=== PATIENT | male | born 1940 | race Hispanic/Latino ===

== ENCOUNTER 2018-05-01 02:34 | Inpatient (IN) | payer OTHER ==
[~2018-05-01] VITALS: Ht 185.4 cm; Wt 93.6 kg
[2018-05-01] VITALS (14 sets, daily range): BP systolic 87–130; BP diastolic 43–71
[2018-05-01 03:29] LABS: BASOPHILS % (AUTO) 1.5 % (0.0-5.0); EOSINOPHILS % (AUTO) 3.6 % (0.0-8.0); HEMATOCRIT 35.2 % (42-54); LYMPHOCYTES % (AUTO) 17.6 % (21.0-51.0); MEAN CORPUSCULAR HEMOGLOBIN 34.1 pg (27.0-33.0); MEAN CORPUSCULAR HGB CONC 33.9 g/dL (32.0-36.0); MEAN CORPUSCULAR VOLUME 100.7 fL (79-99); MONOCYTES % (AUTO) 13.6 % (3.0-13.0); NEUTROPHILS % (AUTO) 63.7 % (40.0-77.0); PLATELET COUNT (AUTO) 162 K/uL (130-400); RED BLOOD CELL COUNT(AUTO) 3.49 MIL/uL (4.50-6.20); RED CELL DISTRIBUTION WIDTH 18.1 % (11.0-15.5); WHITE BLOOD COUNT (AUTO) 7.5 K/uL (4.8-10.8)
[2018-05-01 03:34] LABS: CREATININE 2.1 mg/dL (0.5-1.5); POTASSIUM 3.8 mmol/L (3.5-5.1)
[2018-05-01 03:37] LABS: INR 1.12 (0.85-1.15); PARTIAL THROMBOPLASTIN TIME 28.4 SEC (26.3-35.5); PROTHROMBIN TIME 11.7 SEC (9.6-11.6)
[2018-05-01 03:40] LABS: ALBUMIN 2.7 g/dL (3.5-5.0); BILIRUBIN,TOTAL 1.5 mg/dL (0.2-1.0); TOTAL PROTEIN, SERUM 6.2 g/dL (6.0-8.3)
[2018-05-01] MEDS ORDERED: FUROSEMIDE 10 MG/ML 2ML VIAL ONE (04:35)
[2018-05-01] MEDS ORDERED: ONDANSETRON HCL MDV 20ML 2 MG/ML VIAL IVP PRN (05:30)
[2018-05-01] MEDS ORDERED: SODIUM CHLORIDE 0.9% 10 ML VIAL IVP PRN (05:30)
[2018-05-01] MEDS ORDERED: ALBUTEROL SULFATE 0.083% 2.5 MG/3 ML INH IH PRN (05:30)
[2018-05-01] MEDS ORDERED: LIDOCAINE HCL MPF 1% 5ML VIAL ONE (09:04)
[2018-05-01] MEDS: FUROSEMIDE 10 MG/ML 2ML VIAL IVP SCH (11:09)
[2018-05-01] MEDS ORDERED: ALBUMIN (HUMAN) 25% 200 ML IV SCH (11:15)
[2018-05-01 11:41] LABS: APPEARANCE BODY FLUID CLEAR (CLEAR); BODY FLUID WBC 84 /cu. mm.; COLOR,BODY FLUID YELLOW (LT YELLOW); SPECIMENTYPE,BODY FLUID ASCITES; TOTAL VOLUME,BODY FLUID 4500 mL
[2018-05-01 11:42] LABS: BODY FLUID RBC 118 /cu. mm.
[2018-05-01 11:49] LABS: BF LYMPHOCYTE 44 %; BF MESOTHELIAL 34 %; BF MONOCYTE 12 %
[2018-05-01] MEDS ORDERED: SODIUM CHLORIDE 0.9% 500ML 500 ML IV SCH ×2 (13:35→13:45)
[2018-05-01] MEDS ORDERED: ALBUMIN (HUMAN) 25% 100 ML IV ONE (15:00)
[2018-05-02 03:35] VITALS: BP 96/60
[2018-05-02 05:01] LABS: BASOPHILS % (AUTO) 2.3 % (0.0-5.0); EOSINOPHILS % (AUTO) 5.5 % (0.0-8.0); HEMATOCRIT 28.9 % (42-54); LYMPHOCYTES % (AUTO) 18.8 % (21.0-51.0); MEAN CORPUSCULAR HEMOGLOBIN 33.5 pg (27.0-33.0); MEAN CORPUSCULAR HGB CONC 33.6 g/dL (32.0-36.0); MEAN CORPUSCULAR VOLUME 99.7 fL (79-99); MONOCYTES % (AUTO) 9.7 % (3.0-13.0); NEUTROPHILS % (AUTO) 63.7 % (40.0-77.0); RED CELL DISTRIBUTION WIDTH 18.3 % (11.0-15.5); WHITE BLOOD COUNT (AUTO) 5.2 K/uL (4.8-10.8)
[2018-05-02 05:07] LABS: ALBUMIN 2.6 g/dL (3.5-5.0); BILIRUBIN,TOTAL 1.4 mg/dL (0.2-1.0); CREATININE 1.9 mg/dL (0.5-1.5); POTASSIUM 3.7 mmol/L (3.5-5.1)
[2018-05-02 05:36] LABS: INR 1.32 (0.85-1.15); PARTIAL THROMBOPLASTIN TIME 34.8 SEC (26.3-35.5); PROTHROMBIN TIME 13.8 SEC (9.6-11.6)
[2018-05-02 05:43] LABS: PLATELET COUNT (AUTO) 98 K/uL (130-400)
[2018-05-02] MEDS: FUROSEMIDE 10 MG/ML 2ML VIAL IVP SCH (05:49)
[2018-05-02 08:00] VITALS: BP 94/61
== END 2018-05-02 12:00 | disposition home or self-care (01) | DRG 433 ==
LOC: EEVIPCON 02:34 → EDH 02:34 → EDHIP 04:00 → OBSVTOIN 04:00 → 3DH 05:36
PROVIDERS: ADMIT Hospitalist; ATTEND Hospitalist
PROC: 0W9G3ZZ Drainage of Peritoneal Cavity, Percutaneous Approach (ICD-10-PCS; principal; 2018-05-01)
DX: K74.60 Unspecified cirrhosis of liver (principal); R18.8 Other ascites; I50.9 Heart failure, unspecified; I11.0 Hypertensive heart disease with heart failure; E78.5 Hyperlipidemia, unspecified; Z82.5 Family history of asthma and other chronic lower respiratory diseases; Z82.49 Family history of ischemic heart disease and other diseases of the circulatory system
CPT/HCPCS: 36415; 49083; 76705; 80053; 83690; 83880; 84484; 85025; 85610; 85730; 87071; 87205; 89051; 93005; 94664; J1940; J3490; J7040; P9046

== ENCOUNTER 2018-05-13 13:58 | Inpatient (IN) | payer OTHER ==
[~2018-05-13] VITALS: Ht 185.4 cm; Wt 96.2 kg
[2018-05-13 14:30] LABS: CREATININE 3.1 mg/dL (0.5-1.5); POTASSIUM 4.7 mmol/L (3.5-5.1)
[2018-05-13 14:37] LABS: ALBUMIN 2.6 g/dL (3.5-5.0); BILIRUBIN,TOTAL 1.9 mg/dL (0.2-1.0); INR 1.16 (0.85-1.15); PARTIAL THROMBOPLASTIN TIME 28.5 SEC (26.3-35.5); PROTHROMBIN TIME 12.1 SEC (9.6-11.6); TOTAL PROTEIN, SERUM 6.4 g/dL (6.0-8.3)
[2018-05-13 14:38] LABS: BASOPHILS % (AUTO) 0.8 % (0.0-5.0); EOSINOPHILS % (AUTO) 0.3 % (0.0-8.0); HEMATOCRIT 38.7 % (42-54); LYMPHOCYTES % (AUTO) 10.2 % (21.0-51.0); MEAN CORPUSCULAR HEMOGLOBIN 33.7 pg (27.0-33.0); MEAN CORPUSCULAR HGB CONC 33.7 g/dL (32.0-36.0); MEAN CORPUSCULAR VOLUME 100.1 fL (79-99); MONOCYTES % (AUTO) 5.7 % (3.0-13.0); PLATELET COUNT (AUTO) 125 K/uL (130-400); RED BLOOD CELL COUNT(AUTO) 3.86 MIL/uL (4.50-6.20); RED CELL DISTRIBUTION WIDTH 16.9 % (11.0-15.5); WHITE BLOOD COUNT (AUTO) 10.7 K/uL (4.8-10.8)
[2018-05-13] MEDS ORDERED: SODIUM CHLORIDE 0.9% 1000ML 1,000 ML IV ONE ×2 (15:13→17:56)
[2018-05-13] MEDS ORDERED: ZOSYN 3.375GM+NS 50ML 50 ML IV ONE (17:56)
[2018-05-13] MEDS ORDERED: LACTULOSE 20 GM/30 ML UDCUP ONE (17:56)
[2018-05-13] MEDS ORDERED: HYDRALAZINE HCL 20 MG/ML VIAL IV PRN (18:15)
[2018-05-13] MEDS ORDERED: ONDANSETRON HCL 4 MG/2 ML VIAL IV PRN (18:15)
[2018-05-13] MEDS: LACTULOSE 20 GM/30 ML UDCUP PO SCH ×2 (18:15→23:55)
[2018-05-13] MEDS ORDERED: ACETAMINOPHEN 650 MG SUPPOSITORY RC PRN (18:15)
[2018-05-13] MEDS: FUROSEMIDE 10 MG/ML 2ML VIAL IV SCH (18:15)
[2018-05-13] MEDS ORDERED: VANCOMYCIN PROTOCOL PER PHARMACY IV PRN (18:15)
[2018-05-13] MEDS ORDERED: ALBUMIN (HUMAN) 25% 200 ML IV ONE (18:30)
[2018-05-13] MEDS ORDERED: PHARMACY COMMUNICATION MISC SCH (18:30)
[2018-05-13 19:04] LABS: SPECIMENTYPE,BODY FLUID ASCITES
[2018-05-13 19:06] LABS: ABG BASE EXCESS -3.5 mmol/L (-2.0-3.0); ABG HCO3 18.8 mmol/L (21.0-28.0); ABG OXYGEN SATURATION 97.3 % (95.0-99.0); ABG PCO2 27 mmHg (35-48)
[2018-05-13 19:08] LABS: APPEARANCE BODY FLUID SLIGHTLY CLOUDY (CLEAR); COLOR,BODY FLUID YELLOW (LT YELLOW)
[2018-05-13 19:11] LABS: BODY FLUID WBC 145 /cu. mm.; TOTAL VOLUME,BODY FLUID 115000 mL
[2018-05-13 19:12] LABS: BODY FLUID RBC 225 /cu. mm.
[2018-05-13 19:53] LABS: BF LYMPHOCYTE 44 %; BF MESOTHELIAL 39 %; BF MONOCYTE 6 %
[2018-05-13] MEDS: ZOSYN 3.375GM+NS 50ML 50 ML IV SCH (21:00)
[2018-05-13] MEDS ORDERED: ALBUMIN (HUMAN) 25% 100 ML IV ONE (22:04)
[2018-05-13] MEDS ORDERED: FAMOTIDINE/PF 20 MG/2 ML VIAL IV ONE (22:05)
[2018-05-13] MEDS ORDERED: FUROSEMIDE 10 MG/ML 2ML VIAL ONE (22:05)
[2018-05-13 23:10] VITALS: BP 125/81
[2018-05-13 23:15] VITALS: BP 114/64
[2018-05-13 23:29] VITALS: BP 132/72
[2018-05-13] MEDS ORDERED: METO25TA6 PO (23:40)
[2018-05-13] MEDS ORDERED: FURO20TA4 PO (23:40)
[2018-05-13] MEDS ORDERED: SPIR25TA6 PO (23:40)
[2018-05-13] MEDS ORDERED: RANI150C4 PO (23:40)
[2018-05-13] MEDS ORDERED: ATOR40TA71 PO (23:40)
[2018-05-13] MEDS ORDERED: MIDO5TAB PO (23:40)
[2018-05-13] MEDS ORDERED: LACT10SO9 PO (23:40)
[2018-05-13 23:44] VITALS: BP 103/57
[2018-05-13 23:50] VITALS: BP 114/64
[2018-05-13 23:59] VITALS: BP 106/61
[2018-05-13] MEDS: RIFAXIMIN 550 MG TABLET PO SCH (23:59)
[2018-05-14] VITALS (8 sets, daily range): BP systolic 93–126; BP diastolic 36–77
[2018-05-14] MEDS ORDERED: PHARMACY COMMUNICATION MISC SCH (02:15)
[2018-05-14 03:32] LABS: HEMATOCRIT 33.5 % (42-54); MEAN CORPUSCULAR HGB CONC 33.3 g/dL (32.0-36.0); PLATELET COUNT (AUTO) 98 K/uL (130-400); RED BLOOD CELL COUNT(AUTO) 3.38 MIL/uL (4.50-6.20); RED CELL DISTRIBUTION WIDTH 17.1 % (11.0-15.5); WHITE BLOOD COUNT (AUTO) 9.8 K/uL (4.8-10.8)
[2018-05-14 03:38] LABS: CREATININE 3.1 mg/dL (0.5-1.5)
[2018-05-14 04:29] LABS: POTASSIUM 5.4 mmol/L (3.5-5.1)
[2018-05-14] MEDS: FUROSEMIDE 10 MG/ML 2ML VIAL IV SCH ×2 (05:50→17:36)
[2018-05-14] MEDS: LACTULOSE 20 GM/30 ML UDCUP PO SCH ×3 (05:50→17:36)
[2018-05-14] MEDS ORDERED: COMPOUND IV REFRIGERATED 1 EACH IVSOLN MISC PRN (06:30)
[2018-05-14] MEDS: ZOSYN 3.375GM+NS 50ML 50 ML IV SCH ×2 (07:57→20:28)
[2018-05-14] MEDS: FAMOTIDINE/PF 20 MG/2 ML VIAL IV SCH (07:57)
[2018-05-14] MEDS: RIFAXIMIN 550 MG TABLET PO SCH ×2 (08:20→20:29)
[2018-05-14] MEDS ORDERED: VANCOMYCIN 1.5 GM in SODIUM CHLORIDE 0.9% 250 ML IV SCH (09:00)
[2018-05-14] MEDS ORDERED: ENOXAPARIN SODIUM 30 MG/0.3 ML SQ SCH (09:00)
[2018-05-14 11:51] LABS: HEMATOCRIT 35.2 % (42-54); MEAN CORPUSCULAR HEMOGLOBIN 33.2 pg (27.0-33.0); MEAN CORPUSCULAR HGB CONC 33.3 g/dL (32.0-36.0); MEAN CORPUSCULAR VOLUME 99.6 fL (79-99); NUCLEATED RED BLOOD CELLS 0.1 % (0.0-0.19); PLATELET COUNT (AUTO) 82 K/uL (130-400); RED BLOOD CELL COUNT(AUTO) 3.53 MIL/uL (4.50-6.20); RED CELL DISTRIBUTION WIDTH 16.9 % (11.0-15.5); WHITE BLOOD COUNT (AUTO) 9.3 K/uL (4.8-10.8)
[2018-05-14 11:58] LABS: CREATININE 2.9 mg/dL (0.5-1.5); POTASSIUM 4.5 mmol/L (3.5-5.1)
[2018-05-14 12:03] LABS: ALBUMIN 2.6 g/dL (3.5-5.0); TOTAL PROTEIN, SERUM 5.6 g/dL (6.0-8.3)
[2018-05-14 12:18] LABS: INR 1.23 (0.85-1.15); PARTIAL THROMBOPLASTIN TIME 35.8 SEC (26.3-35.5); PROTHROMBIN TIME 12.9 SEC (9.6-11.6)
[2018-05-15] MEDS: LACTULOSE 20 GM/30 ML UDCUP PO SCH ×3 (00:39→12:15)
[2018-05-15 03:44] LABS: HEMATOCRIT 33.6 % (42-54); MEAN CORPUSCULAR HGB CONC 34.1 g/dL (32.0-36.0); MEAN CORPUSCULAR VOLUME 99.6 fL (79-99); PLATELET COUNT (AUTO) 91 K/uL (130-400); RED BLOOD CELL COUNT(AUTO) 3.38 MIL/uL (4.50-6.20); RED CELL DISTRIBUTION WIDTH 16.8 % (11.0-15.5); WHITE BLOOD COUNT (AUTO) 8.9 K/uL (4.8-10.8)
[2018-05-15 03:54] LABS: ALBUMIN 2.4 g/dL (3.5-5.0); BILIRUBIN,TOTAL 1.8 mg/dL (0.2-1.0); CREATININE 2.9 mg/dL (0.5-1.5); POTASSIUM 4.4 mmol/L (3.5-5.1); TOTAL PROTEIN, SERUM 5.3 g/dL (6.0-8.3)
[2018-05-15 04:09] VITALS: BP 98/63
[2018-05-15] MEDS: FUROSEMIDE 10 MG/ML 2ML VIAL IV SCH (05:30)
[2018-05-15 08:09] VITALS: BP 114/57
[2018-05-15] MEDS: RIFAXIMIN 550 MG TABLET PO SCH (09:40)
[2018-05-15] MEDS: FAMOTIDINE/PF 20 MG/2 ML VIAL IV SCH (09:40)
[2018-05-15] MEDS: ZOSYN 3.375GM+NS 50ML 50 ML IV SCH (09:40)
[2018-05-15] MEDS ORDERED: RIFA550T PO (10:55)
[2018-05-15 11:45] VITALS: BP 96/51
== END 2018-05-15 14:00 | disposition home or self-care (01) | DRG 441 ==
LOC: EDH 13:58 → EDHIP 16:35 → 2CH 22:32 → 2AH 05-14 12:24
PROVIDERS: ADMIT Hospitalist; ATTEND Hospitalist
PROC: 0W9G3ZZ Drainage of Peritoneal Cavity, Percutaneous Approach (ICD-10-PCS; principal; 2018-05-15)
DX: K72.90 Hepatic failure, unspecified without coma (principal); G93.41 Metabolic encephalopathy; E72.20 Disorder of urea cycle metabolism, unspecified; N17.9 Acute kidney failure, unspecified; E44.0 Moderate protein-calorie malnutrition; I13.0 Hypertensive heart and chronic kidney disease with heart failure and stage 1 through stage 4 chronic kidney disease, or unspecified chronic kidney disease; K70.31 Alcoholic cirrhosis of liver with ascites; N18.9 Chronic kidney disease, unspecified; E87.70 Fluid overload, unspecified; E78.5 Hyperlipidemia, unspecified; I50.9 Heart failure, unspecified; I25.10 Atherosclerotic heart disease of native coronary artery without angina pectoris; Z68.28 Body mass index [BMI] 28.0-28.9, adult; Z28.21 Immunization not carried out because of patient refusal; Z87.891 Personal history of nicotine dependence; Z79.899 Other long term (current) drug therapy
CPT/HCPCS: 36415; 36600; 49083; 71045; 80048; 80053; 80339; 82140; 82550; 82803; 82948; 83605; 84484; 85025; 85027; 85610; 85730; 87040; 87071; 87205; 89051; 92610; 93005; 99291; J1650; J1940; J2543; J3370; J3490; J7030; P9046

== ENCOUNTER 2018-05-20 18:20 | Emergency (ER) | payer OTHER ==
[~2018-05-20 18:20] MED LIST: ATOR40TA71 PO; FURO20TA4 PO; LACT10SO9 PO; METO25TA6 PO; MIDO5TAB PO; RANI150C4 PO; RIFA550T PO; SPIR25TA6 PO
[2018-05-20 18:56] LABS: BASOPHILS % (AUTO) 0.5 % (0.0-5.0); EOSINOPHILS % (AUTO) 1.8 % (0.0-8.0); HEMATOCRIT 38.9 % (42-54); LYMPHOCYTES % (AUTO) 11.1 % (21.0-51.0); MEAN CORPUSCULAR HEMOGLOBIN 32.8 pg (27.0-33.0); MEAN CORPUSCULAR HGB CONC 32.9 g/dL (32.0-36.0); MEAN CORPUSCULAR VOLUME 99.8 fL (79-99); MONOCYTES % (AUTO) 8.3 % (3.0-13.0); NEUTROPHILS % (AUTO) 78.3 % (40.0-77.0); NUCLEATED RED BLOOD CELLS 0.1 % (0.0-0.19); PLATELET COUNT (AUTO) 132 K/uL (130-400); RED BLOOD CELL COUNT(AUTO) 3.89 MIL/uL (4.50-6.20); WHITE BLOOD COUNT (AUTO) 11.6 K/uL (4.8-10.8)
[2018-05-20 19:08] LABS: CREATININE 3.3 mg/dL (0.5-1.5); POTASSIUM 4.4 mmol/L (3.5-5.1)
[2018-05-20 19:14] LABS: ALBUMIN 2.2 g/dL (3.5-5.0); BILIRUBIN,TOTAL 0.8 mg/dL (0.2-1.0); TOTAL PROTEIN, SERUM 5.9 g/dL (6.0-8.3)
[2018-05-20 19:32] LABS: INR 1.18 (0.85-1.15); PARTIAL THROMBOPLASTIN TIME 29.5 SEC (26.3-35.5); PROTHROMBIN TIME 12.4 SEC (9.6-11.6)
[2018-05-20] MEDS ORDERED: MAGNESIUM CITRATE 296 ML SOLUTION ONE (22:17)
[2018-05-20] MEDS ORDERED: BISACODYL 10 MG SUPP.RECT RC ONE (22:17)
== END 2018-05-21 00:27 | disposition home or self-care (01) ==
LOC: EDH 18:20
DX: K59.00 Constipation, unspecified (principal); R53.1 Weakness; I11.0 Hypertensive heart disease with heart failure; I50.9 Heart failure, unspecified; E78.5 Hyperlipidemia, unspecified; Z87.891 Personal history of nicotine dependence
CPT/HCPCS: 36415; 71045; 74021; 80053; 82140; 82270; 82550; 84484; 85025; 85610; 85730; 93005

== ENCOUNTER 2018-06-08 13:38 | Emergency (ER) | payer OTHER ==
[2018-06-08 14:42] LABS: EOSINOPHILS % (AUTO) 2.5 % (0.0-8.0); HEMATOCRIT 36.4 % (42-54); LYMPHOCYTES % (AUTO) 9.4 % (21.0-51.0); MEAN CORPUSCULAR HGB CONC 33.8 g/dL (32.0-36.0); MEAN CORPUSCULAR VOLUME 97.6 fL (79-99); MONOCYTES % (AUTO) 8.3 % (3.0-13.0); NEUTROPHILS % (AUTO) 78.8 % (40.0-77.0); NUCLEATED RED BLOOD CELLS 0.2 % (0.0-0.19); PLATELET COUNT (AUTO) 108 K/uL (130-400); RED BLOOD CELL COUNT(AUTO) 3.73 MIL/uL (4.50-6.20); RED CELL DISTRIBUTION WIDTH 16.3 % (11.0-15.5)
[2018-06-08 15:01] LABS: INR 1.2 (0.85-1.15); PARTIAL THROMBOPLASTIN TIME 31.1 SEC (26.3-35.5); PROTHROMBIN TIME 12.6 SEC (9.6-11.6)
[2018-06-08 15:08] LABS: CREATININE 3.5 mg/dL (0.5-1.5); POTASSIUM 4.5 mmol/L (3.5-5.1)
[2018-06-08 15:12] LABS: ALBUMIN 1.8 g/dL (3.5-5.0); BILIRUBIN,TOTAL 1.1 mg/dL (0.2-1.0); TOTAL PROTEIN, SERUM 5.6 g/dL (6.0-8.3)
[2018-06-08 15:32] LABS: B-TYPE NATRIURETIC PEPTIDE 624 pg/mL (0-100)
[2018-06-08] MEDS ORDERED: FUROSEMIDE 10 MG/ML 4ML VIAL ONE (18:08)
== END 2018-06-08 18:20 | disposition home or self-care (01) ==
LOC: EDH 13:38
DX: R18.8 Other ascites (principal); E87.79 Other fluid overload; I11.0 Hypertensive heart disease with heart failure; I50.9 Heart failure, unspecified; E78.5 Hyperlipidemia, unspecified; Z87.891 Personal history of nicotine dependence
CPT/HCPCS: 36415; 71045; 80053; 82140; 83880; 84484; 85025; 85610; 85730; 93005; 96374; 99285; J1940

== ENCOUNTER 2018-06-09 07:26 | Emergency (ER) | payer OTHER ==
[2018-06-09] MEDS ORDERED: ALBUMIN (HUMAN) 25% 200 ML IV ONE (09:51)
[2018-06-09] MEDS ORDERED: LIDOCAINE HCL MPF 1% 5ML VIAL ONE (09:51)
== END 2018-06-09 13:50 | disposition home or self-care (01) ==
LOC: EDH 07:26
DX: R18.8 Other ascites (principal); R06.02 Shortness of breath; I50.9 Heart failure, unspecified; K74.60 Unspecified cirrhosis of liver; E78.5 Hyperlipidemia, unspecified; I10 Essential (primary) hypertension; Z87.891 Personal history of nicotine dependence
CPT/HCPCS: 49083; 93005; 96365; 99285; A4215; J3490; P9046

== ENCOUNTER 2018-06-15 11:44 | Emergency (ER) | payer OTHER ==
[2018-06-15 12:16] LABS: BASOPHILS % (AUTO) 1.1 % (0.0-5.0); EOSINOPHILS % (AUTO) 1.8 % (0.0-8.0); HEMATOCRIT 37.4 % (42-54); LYMPHOCYTES % (AUTO) 8.6 % (21.0-51.0); MEAN CORPUSCULAR HEMOGLOBIN 32.9 pg (27.0-33.0); MEAN CORPUSCULAR HGB CONC 34.3 g/dL (32.0-36.0); MEAN CORPUSCULAR VOLUME 95.8 fL (79-99); MONOCYTES % (AUTO) 6.8 % (3.0-13.0); NEUTROPHILS % (AUTO) 81.7 % (40.0-77.0); PLATELET COUNT (AUTO) 122 K/uL (130-400); RED CELL DISTRIBUTION WIDTH 15.8 % (11.0-15.5); WHITE BLOOD COUNT (AUTO) 11.1 K/uL (4.8-10.8)
[2018-06-15 12:20] LABS: INR 1.25 (0.85-1.15); PROTHROMBIN TIME 13.1 SEC (9.6-11.6)
[2018-06-15 12:33] LABS: CREATININE 2.7 mg/dL (0.5-1.5); POTASSIUM 4.1 mmol/L (3.5-5.1)
[2018-06-15 12:36] LABS: B-TYPE NATRIURETIC PEPTIDE 412 pg/mL (0-100)
[2018-06-15 12:40] LABS: ABG BASE EXCESS -0.6 mmol/L (-2.0-3.0); ABG HCO3 18.6 mmol/L (21.0-28.0); ABG OXYGEN SATURATION 99.8 % (95.0-99.0); ABG PCO2 20 mmHg (35-48)
[2018-06-15 12:41] LABS: ALBUMIN 2.2 g/dL (3.5-5.0); BILIRUBIN,TOTAL 2.1 mg/dL (0.2-1.0); TOTAL PROTEIN, SERUM 6.1 g/dL (6.0-8.3)
[2018-06-15] MEDS ORDERED: SODIUM CHLORIDE 0.9% 500ML 500 ML IV ONE (13:09)
== END 2018-06-15 15:02 | disposition home or self-care (01) ==
LOC: EDH 11:44
DX: K70.31 Alcoholic cirrhosis of liver with ascites (principal); I11.0 Hypertensive heart disease with heart failure; I50.9 Heart failure, unspecified; E78.5 Hyperlipidemia, unspecified
CPT/HCPCS: 36415; 71045; 80053; 82803; 83880; 84484; 85025; 85610; 85730; 93005; 99285; J7040

== ENCOUNTER 2018-07-13 12:22 | Inpatient (IN) | payer OTHER ==
[~2018-07-13] VITALS: Ht 182.9 cm; Wt 91.0 kg
[2018-07-13 00:10] VITALS: BP 94/58
[~2018-07-13 12:22] MED LIST changes: +LEVO500T2 PO; -METO25TA6 PO; -RANI150C4 PO; -RIFA550T PO
[2018-07-13 13:11] LABS: CREATININE 5.7 mg/dL (0.5-1.5); POTASSIUM 4.7 mmol/L (3.5-5.1)
[2018-07-13 13:13] LABS: BILIRUBIN,TOTAL 1.9 mg/dL (0.2-1.0)
[2018-07-13 13:23] LABS: BASOPHILS % (AUTO) 1.3 % (0.0-5.0); EOSINOPHILS % (AUTO) 2.1 % (0.0-8.0); LYMPHOCYTES % (AUTO) 16.1 % (21.0-51.0); MEAN CORPUSCULAR HEMOGLOBIN 31.6 pg (27.0-33.0); MEAN CORPUSCULAR HGB CONC 33.4 g/dL (32.0-36.0); MEAN CORPUSCULAR VOLUME 94.5 fL (79-99); MONOCYTES % (AUTO) 7.7 % (3.0-13.0); NEUTROPHILS % (AUTO) 72.8 % (40.0-77.0); NUCLEATED RED BLOOD CELLS 0.1 % (0.0-0.19); PLATELET COUNT (AUTO) 93 K/uL (130-400); RED BLOOD CELL COUNT(AUTO) 4.12 MIL/uL (4.50-6.20); RED CELL DISTRIBUTION WIDTH 16.8 % (11.0-15.5); WHITE BLOOD COUNT (AUTO) 7.3 K/uL (4.8-10.8)
[2018-07-13] MEDS ORDERED: ONDANSETRON HCL 4 MG/2 ML VIAL ONE (16:07)
[2018-07-13] MEDS ORDERED: MORPHINE SULFATE 4 MG/1ML SYG ONE (16:08)
[2018-07-13 19:42] VITALS: BP 96/66
[2018-07-13] MEDS ORDERED: DIPHENHYDRAMINE HCL 25 MG CAPSULE PO PRN (22:30)
[2018-07-13] MEDS: SODIUM CHLORIDE 0.9% 1000ML 1,000 ML IV SCH (22:59)
[2018-07-13] MEDS ORDERED: MORPHINE SULFATE 2 MG/ML 1ML SYG IV PRN (23:00)
[2018-07-13] MEDS ORDERED: MORPHINE SULFATE 4 MG/1ML SYG IV PRN (23:00)
[2018-07-13] MEDS ORDERED: ACETAMINOPHEN 325 MG TAB PO PRN (23:00)
[2018-07-13] MEDS ORDERED: ONDANSETRON HCL 4 MG/2 ML VIAL IV PRN (23:00)
[2018-07-14] VITALS (11 sets, daily range): BP systolic 85–115; BP diastolic 47–68
[2018-07-14 05:47] LABS: BASOPHILS % (AUTO) 0.6 % (0.0-5.0); EOSINOPHILS % (AUTO) 4.5 % (0.0-8.0); HEMATOCRIT 33.5 % (42-54); LYMPHOCYTES % (AUTO) 14.3 % (21.0-51.0); MEAN CORPUSCULAR HEMOGLOBIN 30.4 pg (27.0-33.0); MEAN CORPUSCULAR HGB CONC 33.2 g/dL (32.0-36.0); MEAN CORPUSCULAR VOLUME 91.5 fL (79-99); MONOCYTES % (AUTO) 10.1 % (3.0-13.0); NEUTROPHILS % (AUTO) 70.5 % (40.0-77.0); NUCLEATED RED BLOOD CELLS 0.2 % (0.0-0.19); PLATELET COUNT (AUTO) 73 K/uL (130-400); RED BLOOD CELL COUNT(AUTO) 3.66 MIL/uL (4.50-6.20); RED CELL DISTRIBUTION WIDTH 16.6 % (11.0-15.5); WHITE BLOOD COUNT (AUTO) 8.2 K/uL (4.8-10.8)
[2018-07-14 05:57] LABS: BILIRUBIN,TOTAL 1.8 mg/dL (0.2-1.0); CREATININE 5.8 mg/dL (0.5-1.5); INR 1.32 (0.85-1.15); MAGNESIUM 2.4 mg/dL (1.80-2.40); PARTIAL THROMBOPLASTIN TIME 32.6 SEC (26.3-35.5); POTASSIUM 3.9 mmol/L (3.5-5.1); PROTHROMBIN TIME 13.8 SEC (9.6-11.6); TOTAL PROTEIN, SERUM 5.5 g/dL (6.0-8.3)
[2018-07-14] MEDS ORDERED: ALBUMIN (HUMAN) 25% 200 ML IV SCH (08:41)
[2018-07-14] MEDS ORDERED: ENOXAPARIN SODIUM 30 MG/0.3 ML SQ SCH (09:00)
[2018-07-14] MEDS: PANTOPRAZOLE SODIUM 40 MG TABLET.DR PO SCH (09:00)
[2018-07-14] MEDS ORDERED: LEVOFLOXACIN 500 MG/D5W 100 ML 100 ML IV SCH (09:30)
[2018-07-14] MEDS ORDERED: DIPHENHYDRAMINE HCL 25 MG CAPSULE PO PRN (09:30)
[2018-07-14 10:59] LABS: APPEARANCE,URINE Turbid (CLEAR); BILIRUBIN,URINE Small (NEGATIVE); COLOR,URINE Dark Yellow (YELLOW); GLUCOSE, URINE (UA) Negative (NEGATIVE); KETONES,URINE Trace mg/dL (NEGATIVE); LEUKOCYTE ESTERASE ,URINE Large (NEGATIVE); NITRATE,URINE Negative (NEGATIVE); OCCULT BLOOD,URINE Moderate (NEGATIVE); PROTEIN,URINE POS 1+ (NEGATIVE)
[2018-07-14 11:13] LABS: BACTERIA,URINE Many /HPF (None Seen); TRICHOMONAS,URINE Few /LPF (None Seen); WBC,URINE TNTC /HPF (0-1)
[2018-07-14 11:35] LABS: APPEARANCE BODY FLUID CLEAR (CLEAR); BODY FLUID WBC 115 /cu. mm.; COLOR,BODY FLUID YELLOW (LT YELLOW); SPECIMENTYPE,BODY FLUID ASCITES; TOTAL VOLUME,BODY FLUID 8300 mL
[2018-07-14 11:36] LABS: BODY FLUID RBC 710 /cu. mm.
[2018-07-14 11:40] LABS: BF LYMPHOCYTE 31 %; BF MESOTHELIAL 65 %
[2018-07-14] MEDS ORDERED: LIDOCAINE HCL 1% 20 ML VIAL ONE (14:23)
[2018-07-14] MEDS: METRONIDAZOLE 500MG/100ML BAG 100 ML IV SCH ×2 (16:37→21:19)
[2018-07-14] MEDS: SODIUM CHLORIDE 0.9% 1000ML 1,000 ML IV SCH (18:59)
[2018-07-14] MEDS: LACTULOSE 20 GM/30 ML UDCUP PO SCH (21:18)
[2018-07-14] MEDS: ATORVASTATIN CALCIUM 40 MG TABLET PO SCH (21:19)
[2018-07-14] MEDS: MIDODRINE HCL 5 MG TABLET PO SCH (21:19)
[2018-07-15 00:45] VITALS: BP 97/58
[2018-07-15] MEDS: SODIUM CHLORIDE 0.9% 1000ML 1,000 ML IV SCH (01:28)
[2018-07-15 04:50] VITALS: BP 75/50
[2018-07-15] MEDS: METRONIDAZOLE 500MG/100ML BAG 100 ML IV SCH ×3 (05:01→23:03)
[2018-07-15 05:30] LABS: HEMATOCRIT 28.3 % (42-54); MEAN CORPUSCULAR HEMOGLOBIN 31.2 pg (27.0-33.0); MEAN CORPUSCULAR HGB CONC 33.9 g/dL (32.0-36.0); PLATELET COUNT (AUTO) 64 K/uL (130-400); RED BLOOD CELL COUNT(AUTO) 3.08 MIL/uL (4.50-6.20); RED CELL DISTRIBUTION WIDTH 16.6 % (11.0-15.5); WHITE BLOOD COUNT (AUTO) 4.8 K/uL (4.8-10.8)
[2018-07-15 05:46] LABS: INR 1.53 (0.85-1.15); PARTIAL THROMBOPLASTIN TIME 41.5 SEC (26.3-35.5); PROTHROMBIN TIME 15.9 SEC (9.6-11.6)
[2018-07-15 06:04] LABS: CRP QUANTITATIVE 28.9 mg/L (0.00-9.0); POTASSIUM 3.4 mmol/L (3.5-5.1)
[2018-07-15 06:30] LABS: ERYTHROCYTE SEDIMENTATION RATE 7 MM/HR (0-20)
[2018-07-15 07:59] VITALS: BP 96/60
[2018-07-15] MEDS: MIDODRINE HCL 5 MG TABLET PO SCH ×3 (09:25→23:03)
[2018-07-15] MEDS: LACTULOSE 20 GM/30 ML UDCUP PO SCH ×2 (09:25→21:00)
[2018-07-15] MEDS: PANTOPRAZOLE SODIUM 40 MG TABLET.DR PO SCH (09:25)
[2018-07-15 12:12] VITALS: BP 85/48
[2018-07-15 16:21] VITALS: BP 103/44
[2018-07-15 21:00] VITALS: BP 85/61
[2018-07-15] MEDS: ATORVASTATIN CALCIUM 40 MG TABLET PO SCH (23:03)
[2018-07-16] VITALS: BP 88/45
[2018-07-16 04:00] VITALS: BP 99/49
[2018-07-16 05:08] LABS: HEMATOCRIT 30.7 % (42-54); MEAN CORPUSCULAR HEMOGLOBIN 30.7 pg (27.0-33.0); MEAN CORPUSCULAR HGB CONC 33.5 g/dL (32.0-36.0); MEAN CORPUSCULAR VOLUME 91.6 fL (79-99); PLATELET COUNT (AUTO) 57 K/uL (130-400); RED BLOOD CELL COUNT(AUTO) 3.35 MIL/uL (4.50-6.20); RED CELL DISTRIBUTION WIDTH 16.4 % (11.0-15.5); WHITE BLOOD COUNT (AUTO) 5.2 K/uL (4.8-10.8)
[2018-07-16 05:17] LABS: INR 1.51 (0.85-1.15); PARTIAL THROMBOPLASTIN TIME 40.1 SEC (26.3-35.5); PROTHROMBIN TIME 15.7 SEC (9.6-11.6)
[2018-07-16 05:19] LABS: B-TYPE NATRIURETIC PEPTIDE 409 pg/mL (0-100)
[2018-07-16] MEDS: METRONIDAZOLE 500MG/100ML BAG 100 ML IV SCH ×3 (05:45→21:17)
[2018-07-16] MEDS: SODIUM CHLORIDE 0.9% 1000ML 1,000 ML IV SCH (05:45)
[2018-07-16] MEDS: LACTULOSE 20 GM/30 ML UDCUP PO SCH ×2 (09:00→21:00)
[2018-07-16] MEDS: PANTOPRAZOLE SODIUM 40 MG TABLET.DR PO SCH (10:02)
[2018-07-16] MEDS: MIDODRINE HCL 5 MG TABLET PO SCH ×3 (10:02→21:16)
[2018-07-16] MEDS: LEVOFLOXACIN 250 MG/D5W 50ML 50 ML IVPB SCH (10:02)
[2018-07-16 11:28] VITALS: BP 75/49
[2018-07-16 16:40] VITALS: BP 93/39
[2018-07-16 19:06] LABS: CREATININE 4.4 mg/dL (0.5-1.5); MAGNESIUM 1.9 mg/dL (1.80-2.40); PHOSPHORUS 3.9 mg/dL (2.5-4.9)
[2018-07-16 19:18] VITALS: BP 75/56
[2018-07-16 19:19] LABS: POTASSIUM 2.8 mmol/L (3.5-5.1)
[2018-07-16] MEDS ORDERED: LIDOCAINE HCL-MPF 1% 2ML VIAL ONE (20:48)
[2018-07-16] MEDS ORDERED: LIDOCAINE HCL-MPF 1% 2ML VIAL IVP PRN (21:15)
[2018-07-16] MEDS: ATORVASTATIN CALCIUM 40 MG TABLET PO SCH (21:16)
[2018-07-16] MEDS ORDERED: POTASSIUM CHLORIDE 20 MEQ/100 ML BAG IV ONE (21:30)
[2018-07-16] MEDS ORDERED: POTASSIUM CHLORIDE 20 MEQ ERTAB PO ONE (21:30)
[2018-07-16] MEDS ORDERED: LIDOCAINE HCL 2% 20ML IV ONE (21:30)
[2018-07-17] VITALS (29 sets, daily range): BP systolic 52–98; BP diastolic 27–61
[2018-07-17] MEDS: SODIUM CHLORIDE 0.9% 1000ML 1,000 ML IV SCH ×2 (03:36→12:03)
[2018-07-17] MEDS: METRONIDAZOLE 500MG/100ML BAG 100 ML IV SCH ×3 (05:28→22:30)
[2018-07-17 05:37] LABS: MEAN CORPUSCULAR HEMOGLOBIN 31.2 pg (27.0-33.0); MEAN CORPUSCULAR HGB CONC 33.9 g/dL (32.0-36.0); MEAN CORPUSCULAR VOLUME 91.9 fL (79-99); PLATELET COUNT (AUTO) 76 K/uL (130-400); RED BLOOD CELL COUNT(AUTO) 3.59 MIL/uL (4.50-6.20); RED CELL DISTRIBUTION WIDTH 16.6 % (11.0-15.5); WHITE BLOOD COUNT (AUTO) 5.6 K/uL (4.8-10.8)
[2018-07-17 05:42] LABS: CREATININE 4.1 mg/dL (0.5-1.5); MAGNESIUM 1.8 mg/dL (1.80-2.40); PHOSPHORUS 3.3 mg/dL (2.5-4.9); POTASSIUM 3.7 mmol/L (3.5-5.1)
[2018-07-17 05:53] LABS: INR 1.53 (0.85-1.15); PARTIAL THROMBOPLASTIN TIME 39.4 SEC (26.3-35.5); PROTHROMBIN TIME 15.9 SEC (9.6-11.6)
[2018-07-17] MEDS: MIDODRINE HCL 5 MG TABLET PO SCH ×3 (09:00→22:29)
[2018-07-17] MEDS: PANTOPRAZOLE SODIUM 40 MG TABLET.DR PO SCH (09:00)
[2018-07-17] MEDS: LACTULOSE 20 GM/30 ML UDCUP PO SCH ×2 (10:36→22:29)
[2018-07-17] MEDS ORDERED: BUPIVACAINE/PF 0.5% 30ML VIAL ONE (15:20)
[2018-07-17] MEDS ORDERED: LIDOCAINE PF 2% 5ML ABBOJECT ONE (15:25)
[2018-07-17] MEDS ORDERED: SUCCINYLCHOLINE 200MG/10ML SYR ONE (15:25)
[2018-07-17] MEDS ORDERED: ROCURONIUM 10MG/1ML SYR 10 MG/ML ML ONE (15:26)
[2018-07-17] MEDS ORDERED: FENTANYL CITRATE PF 50 MCG/1 ML 2ML VIAL ONE (15:26)
[2018-07-17] MEDS ORDERED: PROPOFOL 10 MG/ML 20ML VIAL IV ONE (15:26)
[2018-07-17] MEDS ORDERED: EPHEDRINE SULFATE 50 MG/ML AMPULE ONE (15:42)
[2018-07-17] MEDS ORDERED: ALBUMIN (HUMAN) 5% 250 ML IV ONE (16:04)
[2018-07-17] MEDS ORDERED: ESMOLOL HCL 10 MG/ML 10 ML VIAL ONE (16:14)
[2018-07-17] MEDS ORDERED: GLYCOPYRROLATE 1 MG/5 ML SYRINGE ONE (16:18)
[2018-07-17] MEDS ORDERED: NEOSTIGMINE 5MG/5ML SYR IV ONE (16:18)
[2018-07-17] MEDS: TRAMADOL HCL 50 MG TABLET PO PRN (19:02)
[2018-07-17] MEDS: ATORVASTATIN CALCIUM 40 MG TABLET PO SCH (22:30)
[2018-07-17] MEDS ORDERED: SODIUM CHLORIDE 0.9% 250 ML IV SCH (23:30)
[2018-07-18] VITALS (8 sets, daily range): BP systolic 66–97; BP diastolic 35–51
[2018-07-18] MEDS: TRAMADOL HCL 50 MG TABLET PO PRN ×2 (00:26→05:44)
[2018-07-18] MEDS: SODIUM CHLORIDE 0.9% 1000ML 1,000 ML IV SCH ×2 (01:27→11:25)
[2018-07-18 05:31] LABS: BASOPHILS % (AUTO) 0.2 % (0.0-5.0); EOSINOPHILS % (AUTO) 0.4 % (0.0-8.0); HEMATOCRIT 31.8 % (42-54); LYMPHOCYTES % (AUTO) 8.1 % (21.0-51.0); MEAN CORPUSCULAR HEMOGLOBIN 30.5 pg (27.0-33.0); MEAN CORPUSCULAR HGB CONC 32.8 g/dL (32.0-36.0); MEAN CORPUSCULAR VOLUME 92.9 fL (79-99); MONOCYTES % (AUTO) 5.2 % (3.0-13.0); NEUTROPHILS % (AUTO) 86.1 % (40.0-77.0); NUCLEATED RED BLOOD CELLS 0.2 % (0.0-0.19); PLATELET COUNT (AUTO) 61 K/uL (130-400); RED BLOOD CELL COUNT(AUTO) 3.43 MIL/uL (4.50-6.20); RED CELL DISTRIBUTION WIDTH 17.1 % (11.0-15.5); WHITE BLOOD COUNT (AUTO) 5.6 K/uL (4.8-10.8)
[2018-07-18] MEDS: METRONIDAZOLE 500MG/100ML BAG 100 ML IV SCH ×3 (05:32→21:04)
[2018-07-18 05:47] LABS: ALBUMIN 1.8 g/dL (3.5-5.0); BILIRUBIN,TOTAL 1.5 mg/dL (0.2-1.0); CREATININE 4.7 mg/dL (0.5-1.5); POTASSIUM 3.3 mmol/L (3.5-5.1); TOTAL PROTEIN, SERUM 4.2 g/dL (6.0-8.3)
[2018-07-18 06:06] LABS: PLATELET MORPHOLOGY COMMENT MARKED DECREASE
[2018-07-18] MEDS ORDERED: POTASSIUM CHLORIDE 20 MEQ ERTAB PO SCH (08:45)
[2018-07-18] MEDS: LEVOFLOXACIN 250 MG/D5W 50ML 50 ML IVPB SCH (09:00)
[2018-07-18] MEDS: PANTOPRAZOLE SODIUM 40 MG TABLET.DR PO SCH (09:00)
[2018-07-18] MEDS ORDERED: SODIUM CHLORIDE 0.9% 500ML 500 ML IV ONE (09:33)
[2018-07-18] MEDS: MIDODRINE HCL 5 MG TABLET PO SCH ×3 (09:39→20:32)
[2018-07-18] MEDS ORDERED: ALBUMIN (HUMAN) 25% 100 ML IV SCH (09:45)
[2018-07-18] MEDS ORDERED: MIDODRINE HCL 5 MG TABLET PO SCH (09:45)
[2018-07-18] MEDS: LACTULOSE 20 GM/30 ML UDCUP PO SCH ×2 (09:46→20:32)
[2018-07-18] MEDS ORDERED: MIDODRINE HCL 5 MG TABLET ONE (09:47)
[2018-07-18] MEDS ORDERED: MORPHINE SULFATE 4 MG/1ML SYG IV PRN (13:15)
[2018-07-18] MEDS ORDERED: POTASSIUM CHLORIDE 20 MEQ ERTAB PO ONE (17:43)
[2018-07-18] MEDS: ATORVASTATIN CALCIUM 40 MG TABLET PO SCH (20:33)
[2018-07-19 03:53] VITALS: BP 63/44
[2018-07-19 04:08] LABS: BASOPHILS % (AUTO) 0.1 % (0.0-5.0); EOSINOPHILS % (AUTO) 0.2 % (0.0-8.0); HEMATOCRIT 31.1 % (42-54); LYMPHOCYTES % (AUTO) 3.4 % (21.0-51.0); MEAN CORPUSCULAR HEMOGLOBIN 31.1 pg (27.0-33.0); MEAN CORPUSCULAR HGB CONC 33.3 g/dL (32.0-36.0); MEAN CORPUSCULAR VOLUME 93.4 fL (79-99); NEUTROPHILS % (AUTO) 93.3 % (40.0-77.0); PLATELET COUNT (AUTO) 74 K/uL (130-400); RED BLOOD CELL COUNT(AUTO) 3.33 MIL/uL (4.50-6.20); RED CELL DISTRIBUTION WIDTH 17.6 % (11.0-15.5); WHITE BLOOD COUNT (AUTO) 17.1 K/uL (4.8-10.8)
[2018-07-19] MEDS: METRONIDAZOLE 500MG/100ML BAG 100 ML IV SCH ×2 (05:57→13:56)
[2018-07-19 07:31] VITALS: BP 112/80
[2018-07-19] MEDS: LACTULOSE 20 GM/30 ML UDCUP PO SCH (08:54)
[2018-07-19] MEDS: PANTOPRAZOLE SODIUM 40 MG TABLET.DR PO SCH (08:54)
[2018-07-19] MEDS: MIDODRINE HCL 5 MG TABLET PO SCH ×2 (08:54→13:35)
[2018-07-19 11:03] VITALS: BP 67/44
[2018-07-19] MEDS: SODIUM CHLORIDE 0.9% 1000ML 1,000 ML IV SCH (11:18)
[2018-07-19 14:11] VITALS: BP 82/44
[2018-07-19] MEDS ORDERED: ALBUMIN (HUMAN) 25% 100 ML IV ONE ×2 (15:30→20:00)
[2018-07-19 16:02] VITALS: BP 69/32
[2018-07-19] MEDS ORDERED: MORPHINE SULFATE 4 MG/1ML SYG IV PRN (17:00)
[2018-07-19] MEDS ORDERED: MORPHINE SULFATE 2 MG/ML 1ML SYG ONE (22:38)
[2018-07-20] MEDS ORDERED: MORPHINE SULFATE 2 MG/ML 1ML SYG ONE (04:12)
== END 2018-07-20 13:10 | disposition expired | DRG 417 ==
LOC: EDH 12:22 → EDHIP 18:29 → 3DH 19:30 → 2AH 07-18 09:54
PROVIDERS: ADMIT Internal Medicine; ATTEND Internal Medicine
PROC: 0W9G3ZZ Drainage of Peritoneal Cavity, Percutaneous Approach (ICD-10-PCS; 2018-07-14)
PROC: 0FT44ZZ Resection of Gallbladder, Percutaneous Endoscopic Approach (ICD-10-PCS; principal; 2018-07-17 16:00)
DX: K80.00 Calculus of gallbladder with acute cholecystitis without obstruction (principal); G93.41 Metabolic encephalopathy; E87.1 Hypo-osmolality and hyponatremia; N17.9 Acute kidney failure, unspecified; E44.0 Moderate protein-calorie malnutrition; N18.5 Chronic kidney disease, stage 5; I13.2 Hypertensive heart and chronic kidney disease with heart failure and with stage 5 chronic kidney disease, or end stage renal disease; I50.20 Unspecified systolic (congestive) heart failure; K70.31 Alcoholic cirrhosis of liver with ascites; Z51.5 Encounter for palliative care; Z66 Do not resuscitate; I49.3 Ventricular premature depolarization; D69.6 Thrombocytopenia, unspecified; E78.5 Hyperlipidemia, unspecified; I25.10 Atherosclerotic heart disease of native coronary artery without angina pectoris; I48.91 Unspecified atrial fibrillation; I95.89 Other hypotension; N28.1 Cyst of kidney, acquired; Z79.899 Other long term (current) drug therapy; Z86.718 Personal history of other venous thrombosis and embolism; Z68.27 Body mass index [BMI] 27.0-27.9, adult
CPT/HCPCS: 36415; 49083; 74176; 76705; 78226; 80048; 80053; 81001; 82140; 83690; 83735; 83880; 84100; 84132; 85025; 85027; 85610; 85651; 85730; 86140; 87071; 87205; 88304; 89051; 93005; 93306; 96365; A9537; J0330; J1956; J2001; J2270; J2405; J2704; J2710; J3010; J3480; J3490; J7030; J7040; P9045; P9046